=== PATIENT | female | born 1945 | race Caucasian/White ===

== ENCOUNTER 2018-01-09 10:54 | Emergency (ER) | payer OTHER ==
[~2018-01-09] VITALS: Ht 152.4 cm; Wt 68.9 kg
[~2018-01-09 10:54] MED LIST: AVAPRO300 MG PO; CIPRO500 MG PO; DICY20TA PO; EVISTA60 MG PO; FENOFIBRATE134 MG PO; INTESTINEX1 CA1 PO; LEVOTHYROXINE75 MCG PO; METOPROLOL SUCC50 MG PO; NEURONTIN300 MG PO; NITROTAB0.4 MG SL; OMEPRAZOLE40 MG PO; SIMVASTATIN40 MG PO; TRAM1TAB98 PO; [UNRECOGNIZED DRUG - CODE] SUBCUTANEO
== END 2018-01-09 16:23 | disposition home or self-care (01) ==
LOC: ER 10:54
DX: K29.70 Gastritis, unspecified, without bleeding (principal)